=== PATIENT | female | born 1970 | race Caucasian/White ===

== ENCOUNTER → 2019-06-02 | Outpatient (CLI) | payer BC | LOC: COL.RAD 05-29 07:30 | DX: R51 Headache (principal) ==

== ENCOUNTER 2021-01-04 09:26 | Emergency (ER) | payer BC ==
[~2021-01-04] VITALS: Ht 172.7 cm; Wt 131.8 kg
[2021-01-04 10:36] LABS: BASO % 0.4 % (0.0-2.0); GRAN # 4.7 (1.4-6.5); GRAN % 64.7 % (42.2-75.2); HEMATOCRIT 40.7 % (37.0-47.0); HEMOGLOBIN 13.6 g/dl (12.5-16.0); LYMPH # 2.1 (1.2-3.4); LYMPH % 28.6 % (20.0-51.0); MEAN CELL VOLUME 87 fl (80.0-100.0); MEAN CORPUSCULAR HEMOGLOBIN 29 pg (27.0-31.0); MEAN CORPUSCULAR HGB CONC 33 g/dl (33.0-37.0); MEAN PLATELET VOLUME 9.6 fl (7.4-10.4); MONO # 0.4 (0.1-0.6); MONO % 5.5 % (1.7-9.3); PLATELET COUNT 270 K/mm3 (130-400); RED BLOOD COUNT 4.69 M/mm3 (4.10-5.30); REDCELL DISTRIBUTION WIDTH-CV 13.1 % (11.5-14.5)
[2021-01-04 10:43] LABS: ALANINE AMINOTRANSFERASE 41 U/L (4-34); ALBUMIN 4.1 gm/dL (3.5-5.0); ALKALINE PHOSPHATASE 57 U/L (50-136); ANION GAP 11 mmol/L (7-16); AST,SGOT 29 U/L (15-37); BILIRUBIN,TOTAL 0.2 mg/dL (0.0-1.0); BLOOD UREA NITROGEN 14 mg/dL (7-17); CALCIUM 9.1 mg/dL (8.4-10.2); CARBON DIOXIDE 24 mmol/L (22-30); CHLORIDE 102 mmol/L (98-107); CREATININE, serum 0.53 (0.52-1.25); GLUCOSE 231 mg/dL (74-106); PROTHROMBIN TIME 11.6 SECONDS (9.7-12.8); SODIUM 137 mmol/L (137-145); TOTAL PROTEIN 6.8 gm/dL (6.4-8.2)
[2021-01-04 11:01] LABS: TROPONIN-I < 0.012 ng/mL (0.000-0.035)
[2021-01-04 11:57] VITALS: BP 149/101; PULSE 91
[2021-01-04] MEDS ORDERED: PREDNISONE10 MG PO (12:22)
== END 2021-01-04 11:57 | disposition home or self-care (01) ==
LOC: COL.ER 09:26
PROVIDERS: Family Medicine
DX: R22.31 Localized swelling, mass and lump, right upper limb (principal); M54.2 Cervicalgia; Z88.2 Allergy status to sulfonamides